=== PATIENT | female | born 1970 | race Caucasian/White ===

== ENCOUNTER 2022-03-28 12:20 | Outpatient (CLI) | payer OTHER, SELFPAY ==
--- NOTE | 2022-03-28 12:43 | ECG_ITS ---
Measurements Intervals [place] Rate: 59 P: 30 [place]: 161 QRS: 37 QRSD: 93 T: 34 QT: 408 QTc: 405 Interpretive Statements SINUS BRADYCARDIA OTHERWISE NORMAL ECG NO PREVIOUS ECG AVAILABLE FOR COMPARISON Electronically Signed On 03-28-2022 16:43:54 CAREER DEVELOPMENT DIRECTOR by Tomás Aragon M.D.
== END 2022-03-28 12:21 | disposition home or self-care (01) ==
PROVIDERS: PCP Obstetrics & Gynecology; Visit Provider Obstetrics & Gynecology
DX: R07.9 Chest pain, unspecified (principal)
CPT/HCPCS: 93005